=== PATIENT | female | born 1970 | race Two or more races ===

== ENCOUNTER → 2016-07-06 | Outpatient (CLI) | payer MEDICAID, MEDICARE, OTHER ==
--- NOTE | 2016-07-06 09:18 | RAD ---
Left knee radiographs History: Left knee pain for 3 weeks, felt pop while walking on treadmill. Comparison: None. Findings: AP, lateral, and oblique views of the left knee performed weightbearing. No acute fracture or dislocation is identified. Small-moderate joint effusion is seen. Mild-moderate tricompartment degeneration is seen. Impression: 1. Tricompartment degeneration. 2. Joint effusion. 3. No acute fracture identified.
== END | disposition home or self-care (01) ==
LOC: DXRADRC 08:59
PROVIDERS: ATTEND Physician Assistant
DX: M25.562 Pain in left knee (principal)
CPT/HCPCS: 73562

== ENCOUNTER → 2016-10-18 | Outpatient (CLI) | payer MEDICARE ==
--- NOTE | 2016-10-18 12:07 | RAD ---
DATE: 10/18/2016 EXAM: MAMMO NORRIS SCREENING BILATERAL Bilateral digital screening mammography to include digital breast tomosynthesis (3D mammography) HISTORY: Screening study. COMPARISON: 04/30/2015 This study was interpreted with the benefit of Computerized Aided Detection (CAD). FINDINGS: Digital MLO and CC mammograms of both breasts were obtained. Additionally digital breast tomosynthesis (3D mammography) images of both breasts in the MLO and CC projections were performed. Comparison study is dated 04/30/2015. The breast parenchyma is composed of scattered fibroglandular densities which can obscure a lesion on mammography (breast density code B). No spiculated mass is seen. No malignant appearing calcification or area of architectural distortion is noted. Benign-appearing calcifications are seen within both breasts. Digital breast tomosynthesis images demonstrate no spiculated mass or malignant appearing calcification. Since the previous examination there has been no significant interval change. IMPRESSION: BI-RADS Category 1, negative. There is no mammographic evidence of malignancy. Routine yearly screening mammography is recommended for follow-up. BI-RADS CATEGORY: 1 NEGATIVE RECOMMENDED FOLLOW-UP: 12M 12 MONTH FOLLOW-UP PQRS compliance statement: Patient information was entered into a reminder system with a target due date 10/18/2017 for the next mammogram. Mammography is a sensitive method for finding small breast cancers, but it does not detect them all and is not a substitute for careful clinical examination. A negative mammogram does not negate a clinically suspicious finding and should not result in delay in biopsying a clinically suspicious abnormality. "Our facility is accredited by the [employer] Mammography [employer]."
== END | disposition home or self-care (01) ==
LOC: MAMMO 11:03
PROVIDERS: ATTEND Obstetrics & Gynecology
DX: Z12.31 Encounter for screening mammogram for malignant neoplasm of breast (principal)
CPT/HCPCS: 77063; G0202; 77067

== ENCOUNTER → 2017-12-08 | Outpatient (CLI) | payer MEDICARE ==
--- NOTE | 2017-12-08 16:56 | RAD ---
History: Lower abdominal pain for 3 months. Diarrhea. Comparison: None. Findings: AP supine and upright views of the abdomen. Bowel gas pattern is nonspecific, without evidence of obstruction. Cholecystectomy clips are present. Degenerative changes are present in the spine. Impression: Nonspecific bowel gas pattern. Electronically signed by: Bossman Morfin MD (12/08/2017 4:52 PM) [id number]
== END | disposition home or self-care (01) ==
LOC: DXRAD 14:08
PROVIDERS: ATTEND Physician Assistant
DX: R10.84 Generalized abdominal pain (principal); R19.7 Diarrhea, unspecified; M47.899 Other spondylosis, site unspecified
CPT/HCPCS: 74021

== ENCOUNTER → 2019-08-29 | Outpatient (CLI) | payer MEDICARE ==
--- NOTE | 2019-08-29 17:08 | RAD ---
DATE: 08/29/2019 11:11 AM EXAM: MAMMO NORRIS SCREENING BILATERAL HISTORY: Screening COMPARISON: 10/18/2016 TECHNIQUE: Bilateral CC and MLO views of the breasts were performed. Bilateral breast tomosynthesis was performed in CC and MLO projections. Computer-aided detection was utilized. FINDINGS: Breast Density: FATTY The Breast Parenchyma is primarily fatty replaced. Breast parenchyma level density A. Left axillary supernumerary fatty breast tissue is noted. No suspicious masses, microcalcifications or architectural distortion is present to suggest malignancy in either breast. The visualized axillae are unremarkable. IMPRESSION: No mammographic evidence of malignancy. BI-RADS CATEGORY: 1 NEGATIVE RECOMMENDED FOLLOW-UP: 12M 12 MONTH FOLLOW-UP Annual screening mammography is recommended, unless clinically indicated sooner based on symptoms or change in physical exam. PQRS compliance statement: Patient information was entered into a reminder system with a target due date 08/29/2020 for the next mammogram. Mammography is a sensitive method for finding small breast cancers, but it does not detect them all and is not a substitute for careful clinical examination. A negative mammogram does not negate a clinically suspicious finding and should not result in delay in biopsying a clinically suspicious abnormality. "Our facility is accredited by the [employer] Mammography Program."
== END ==
LOC: MAMMO 10:37
PROVIDERS: ATTEND Physician Assistant
DX: Z12.31 Encounter for screening mammogram for malignant neoplasm of breast (principal)
CPT/HCPCS: 77063; 77067

== ENCOUNTER → 2019-10-18 | Outpatient (CLI) | payer MEDICARE ==
[~2019-10-18] MED LIST: CALC1CAP7 PO; EMPA10TA PO; GABA-586 PO; HALO10TA PO; INSU100C4 SQ; INSU3INS SQ; LOSA25TA11 PO; MEDR150V IM; METF-551 PO
== END | disposition home or self-care (01) ==
LOC: LAB 09:50
PROVIDERS: ATTEND Registered Nurse
DX: Z01.818 Encounter for other preprocedural examination (principal); Z11.59 Encounter for screening for other viral diseases; Z12.11 Encounter for screening for malignant neoplasm of colon
CPT/HCPCS: U0003-CS

== ENCOUNTER → 2019-10-22 | Day surgery (SDC) | payer MEDICARE ==
[~2019-10-22] MED LIST changes: +IPRATRPIUM/ALBUTEROL 0.5/2.5MG 3 ML NEBU. NEB PRN; +IV RINGERS SOLUTION,LACTATED 1,000 ML IV SCH; +MIDAZOLAM HCL PF 2 MG/2 ML VIAL. IV ONE; +PROPOFOL 10,000 MCG/ML (20ML) VIAL IV ONE
[2019-10-22 11:25] VITALS: BP 116/64
== END | disposition home or self-care (01) ==
LOC: SURG 09:15
PROVIDERS: ATTEND Internal Medicine Gastroenterology
DX: Z12.11 Encounter for screening for malignant neoplasm of colon (principal); K63.89 Other specified diseases of intestine; I10 Essential (primary) hypertension; E66.9 Obesity, unspecified; D64.9 Anemia, unspecified; M19.90 Unspecified osteoarthritis, unspecified site; F20.89 Other schizophrenia; G47.33 Obstructive sleep apnea (adult) (pediatric); F31.9 Bipolar disorder, unspecified; J45.909 Unspecified asthma, uncomplicated; Z88.8 Allergy status to other drugs, medicaments and biological substances; Z68.41 Body mass index [BMI] 40.0-44.9, adult; Z98.890 Other specified postprocedural states; Z90.49 Acquired absence of other specified parts of digestive tract; Z79.84 Long term (current) use of oral hypoglycemic drugs; Z79.899 Other long term (current) drug therapy
CPT/HCPCS: 45378; 82947; J2704; J7120

== ENCOUNTER 2019-10-28 22:57 | Emergency (ER) | payer MEDICARE ==
[~2019-10-28] VITALS: Ht 160 cm; Wt 104.8 kg
[~2019-10-28 22:57] MED LIST changes: -IPRATRPIUM/ALBUTEROL 0.5/2.5MG 3 ML NEBU. NEB PRN; -IV RINGERS SOLUTION,LACTATED 1,000 ML IV SCH; -MIDAZOLAM HCL PF 2 MG/2 ML VIAL. IV ONE; -PROPOFOL 10,000 MCG/ML (20ML) VIAL IV ONE
[2019-10-28 23:00] VITALS: BP 123/94
--- NOTE | 2019-10-28 23:39 | PHYS DOC ---
Past History Past Medical History: Arthritis, Diabetes, Endometriosis, Schizophrenia Past Surgical History: Cholecystectomy Alcohol Use: None General Adult EDM: Chief Complaint: ABDOMINAL PAIN HPI: HPI: 49-year-old female presents with right sided abdominal pain. The patient started to have pain a couple hours prior to arrival. She took some ibuprofen but it did not seem to help. Seem to be getting worse so she decided come the emergency room. After arriving in the emergency room, the patient had a bowel movement and is feeling much better. Her pain is now a 0 out of 10. She denies fever chills. Review of Systems: Review of Systems: Constitutional: Denies fever or chills Eyes: Denies change in visual acuity HENT: Denies nasal congestion or sore throat Respiratory: Denies cough or shortness of breath Cardiovascular: Denies chest pain or edema GI: Right-sided abdominal pain : Denies dysuria Musculoskeletal: Denies back pain or joint pain Integument: Denies rash Neurologic: Denies headache, focal weakness or sensory changes Endocrine: Denies polyuria or polydipsia Lymphatic: Denies swollen glands Psychiatric: Denies depression or anxiety Heart Score: Risk Factors: Risk Factors: DM, Current or recent (<one month) smoker, HTN, HLP, family history of CAD, obesity. Risk Scores: Score 0 - 3: 2.5% MACE over next 6 weeks - Discharge Home Score 4 - 6: 20.3% MACE over next 6 weeks - Admit for Clinical Observation Score 7 - 10: 72.7% MACE over next 6 weeks - Early Invasive Strategies Allergies: Allergies: Allergies Coded Allergies Type Severity Reaction Last Updated Verified No Known Drug Allergies 10/16/19 No Physical Exam: PE: Constitutional: Well developed, morbidly obese, well nourished, no acute distress, non-toxic appearance. [] HENT: Normocephalic, atraumatic, bilateral external ears normal, oropharynx moist, no oral exudates, nose normal. [] Eyes: PERRLA, EOMI, conjunctiva normal, no discharge. [] Neck: Normal range of motion, no tenderness, supple, no stridor. [] Cardiovascular:Heart rate regular rhythm, no murmur [] Lungs & Thorax: Bilateral breath sounds clear to auscultation [] Abdomen: Bowel sounds normal, soft, no tenderness, no masses, no pulsatile masses. [] Skin: Warm, dry, no erythema, no rash. [] Back: No tenderness, no CVA tenderness. [] Extremities: No tenderness, no cyanosis, no clubbing, ROM intact, no edema. [] Neurologic: Alert and oriented X 3, normal motor function, normal sensory function, no focal deficits noted. [] Psychologic: Affect normal, judgement normal, mood normal. [] Current Patient Data: Vital Signs: Vital Signs Date Time Temp Pulse Resp B/P (MAP) Pulse Ox O2 Delivery O2 Flow Rate FiO2 10/28/19 23:00 98.6 112 18 123/94 (104) 98 Room Air EKG: EKG: [] Radiology/Procedures: Radiology/Procedures: [] Course & Med Decision Making: Course & Med Decision Making Pertinent Labs and Imaging studies reviewed. (See chart for details) Since the patient is feeling better, she has declined she did agree to KUB x- ray. She does have some right-sided stool burden. Have advised that she takes stool softeners and drinks more water. The patient is satisfied with this plan. If her pain comes back, she can always come back to emergency room. She is stable for discharge at this time. [] Dragon Disclaimer: Dragon Disclaimer: This electronic medical record was generated, in whole or in part, using a voice recognition dictation system. Departure Departure: Impression: Primary Impression: Right sided abdominal pain Additional Impression: Constipation by delayed colonic transit Disposition: HOME/RESIDENCE PRIOR TO ADM Condition: IMPROVED Referrals: LILIAM TINSLEY (PCP) Patient Instructions: Constipation, Adult, [id number] Justification of Admission: Justification of Admission: Justification of Admission Dx: N/A DUNG FLORES DO Oct 28, 2019 23:39
[2019-10-28 23:40] LABS: BILIRUBIN,URINE NEG (NEG); CLARITY,URINE HAZY; COLOR,URINE YELLOW; GLUCOSE,URINE >=1000 mg/dL (NEG); NITRITE,URINE NEG (NEG); UROBILINOGEN,URINE 0.2 mg/dL (0.2 mg/dL)
[2019-10-28 23:41] LABS: BACTERIA,URINE FEW /HPF (0-FEW); SQUAMOUS EPITHELIAL CELL,UR FEW /LPF; WBC,URINE 20-40 /HPF (0-4)
--- NOTE | 2019-10-28 23:41 | RAD ---
INDICATION: Reason: RUQ pain / Spl. Instructions: / History: COMPARISON: None. IMPRESSION: Abdomen: 2 views obtained. Degenerative changes of the spine. There are some calcifications in the pelvis which is commonly from phleboliths formation. Degenerative changes of the hips. There is an air-filled dilated loop of small bowel in the left side of the abdomen measuring up to 35 mm. There is also some air seen scattered throughout the large bowel. Could be secondary to phase of peristalsis of the small bowel although would correlate with symptoms to ensure that there is not a pathologic causes such as partial obstruction. Electronically signed by: Javon Kaplan MD (10/28/2019 11:39 PM) [id number]
== END 2019-10-28 23:43 | disposition home or self-care (01) ==
LOC: ER 22:57
DX: K59.01 Slow transit constipation (principal); M19.90 Unspecified osteoarthritis, unspecified site; E11.9 Type 2 diabetes mellitus without complications; F20.9 Schizophrenia, unspecified; E66.01 Morbid (severe) obesity due to excess calories; Z90.89 Acquired absence of other organs; Z68.41 Body mass index [BMI] 40.0-44.9, adult
CPT/HCPCS: 74018; 81001; 87077; 87086; 99284

== ENCOUNTER → 2020-08-31 | Outpatient (CLI) | payer MEDICARE ==
[~2020-08-31] MED LIST changes: -METF-551 PO; +METF-639 PO
--- NOTE | 2020-08-31 17:11 | RAD ---
DATE: 08/31/2020 EXAM: MAMMO NORRIS SCREENING BILATERAL HISTORY: Screening COMPARISON: 05/27/2011, 04/30/2015, 08/18/2016, 08/29/2019 This study was interpreted with the benefit of Computerized Aided Detection (CAD). Breast Density: SCATTERED The breast parenchyma shows scattered fibroglandular densities. Breast parenchyma level B. FINDINGS: No mass, suspicious calcification, or architectural distortion in either breast. IMPRESSION: No evidence of malignancy. BI-RADS CATEGORY: 1 NEGATIVE RECOMMENDED FOLLOW-UP: 12M 12 MONTH FOLLOW-UP PQRS compliance statement: Patient information was entered into a reminder system with a target due date for the next mammogram. Mammography is a sensitive method for finding small breast cancers, but it does not detect them all and is not a substitute for careful clinical examination. A negative mammogram does not negate a clinically suspicious finding and should not result in delay in biopsying a clinically suspicious abnormality. "Our facility is accredited by the [employer] Mammography Program."
== END ==
LOC: MAMMO 09:35
PROVIDERS: ATTEND Physician Assistant
DX: Z12.31 Encounter for screening mammogram for malignant neoplasm of breast (principal)
CPT/HCPCS: 77063; 77067

== ENCOUNTER → 2021-02-17 | Outpatient (CLI) | payer MEDICARE ==
--- NOTE | 2021-02-17 12:00 | RAD ---
AP and Lateral Views of the Chest 02/17/2021 10:16 AM Indication: Reason: SHORT OF AIR SINCE COVID 01/27/21 / [facility]. Instructions: / History: Comparison: None available Findings: Ill-defined opacity seen in the left lateral lung without definitive lateral correlate. No pneumothorax, effusion, or other infiltrate is seen. Heart size is normal. Bony thorax is intact. Impression: Ill-defined opacity in the left lateral lung. Given history of recent Covid pneumonia thi s could represent a resolving infiltrate. Recommend either radiographic follow-up in 4-6 weeks to ens ure resolution, versus CT chest for further characterization. Electronically signed by: Leon Akhtar MD (02/17/2021 11:57 AM) [id number]
== END ==
LOC: RAD 10:11
PROVIDERS: ATTEND Physician Assistant
DX: R06.00 Dyspnea, unspecified (principal); Z86.16 Personal history of COVID-19
CPT/HCPCS: 71046

== ENCOUNTER → 2021-07-02 | Outpatient (CLI) | payer MEDICARE ==
[~2021-07-02] MED LIST changes: -EMPA10TA PO; +EMPA10TA3 PO
--- NOTE | 2021-07-02 17:54 | RAD ---
DATE: 07/02/2021 EXAM: MG DIGITAL BILAT DIAGNOSTIC MAMMO WITH NORRIS, US BREAST LTD RT HISTORY: The patient fell several lump along her inferior right breast 2 months ago but they are no l onger present. COMPARISON: 08/31/2020, 08/29/2019, 10/18/2026 This study was interpreted with the benefit of Computerized Aided Detection (CAD). Breast Density: FATTY The breast parenchyma is primarily fatty replaced. Breast parenchyma level dens ity A. FINDINGS: No suspicious mass, calcification, or architectural distortion. Focused ultrasound of the right breast was performed in the area of concern in the far medial inferio r right breast, near the chest wall. At 5:00, 13 cm from the nipple, there are 2 ovoid hypoechoic mas ses within the skin, one measuring 2.0 x 1.0 x 0.4 cm and the other 1.5 x 0.7 x 0.3 cm. These are par allel in orientation with circumscribed margins and do not extend into the underlying breast parenchy ma. These are most likely a sebaceous cyst. There is no breast mass. IMPRESSION: 1. No evidence of malignancy. 2. There are 2 intradermal masses the far medial inferior right breast/chest wall, possibly sebaceous cysts. Recommend clinical follow-up and management. BI-RADS CATEGORY: 2 BENIGN FINDING(S) RECOMMENDED FOLLOW-UP: 12M 12 MONTH FOLLOW-UP PQRS compliance statement: Patient information was entered into a reminder system with a target due d ate for the next mammogram. Mammography is a sensitive method for finding small breast cancers, but it does not detect them all a nd is not a substitute for careful clinical examination. A negative mammogram does not negate a clin ically suspicious finding and should not result in delay in biopsying a clinically suspicious abnorma lity. "Our facility is accredited by the [employer] Mammography Program." Electronically signed by: Lisa Wright MD (07/02/2021 5:52 PM) [id number]
== END ==
LOC: MAMMO 13:08
PROVIDERS: ATTEND Obstetrics & Gynecology
DX: N63.14 Unspecified lump in the right breast, lower inner quadrant (principal)
CPT/HCPCS: 76642; 77066; G0279; 77062

== ENCOUNTER → 2021-08-03 | Outpatient (CLI) | payer MEDICARE ==
[2021-08-04 02:14] LABS: ESTRADIOL LEVEL <5.0 pg/mL (.); FSH 41.5 mIU/mL (.); LUTEINIZING HORMONE 15.7 mIU/mL (.)
== END ==
LOC: LAB 13:46
PROVIDERS: ATTEND Obstetrics & Gynecology
DX: Z30.42 Encounter for surveillance of injectable contraceptive (principal)
CPT/HCPCS: 36415; 82670; 83001; 83002